=== PATIENT | female | born 1940 | race Asian ===

== ENCOUNTER 2019-08-04 00:23 | Emergency (ER) | payer SELFPAY ==
[~2019-08-04] VITALS: Ht 149.9 cm; Wt 65.8 kg
[2019-08-04 00:23] VITALS: BP_SYST 190
--- NOTE | 2019-08-04 00:23 | NUR ---
Placed in room 05 . Placed on school lunch monitor, blood pressure machine and pulse oximeter. Seizure precautions in place. Seizure pads applied to [place]. Side rails up.
--- NOTE | 2019-08-04 00:25 | NUR ---
Patient brought by [employer] for witnessed tonic clonic seizure lasting 2 mins in bed from home. Patient speaks primarily Tagalog. Patient is accompanied by daughter. Patient has history of HTN, Hyperlipidemia and Seizures. Last seizure was February 2018. Patient not currently on seizure medication. Denies any pain. No other complaints/injuries per patient or as noted. Will continue to monitor.
--- NOTE | 2019-08-04 00:37 | NUR ---
# 18 gauge angiocath placed to lac. Use of asceptic technique. Opsite placed over site. Blood return noted. Blood for lab drawn from site. Flushed with 10 cc of normal saline. No evidence of infiltration noted. Patient tolerated well.
--- NOTE | 2019-08-04 00:45 | NUR ---
ER Dr. Mcintosh at bedside examining patient.
[2019-08-04] MEDS ORDERED: LOSA25TA3 PO (01:05)
[2019-08-04] MEDS ORDERED: AMLO5TAB4 PO (01:06)
[2019-08-04] MEDS ORDERED: Atorvastatin PO (01:07)
[2019-08-04 01:10] LABS: HEMOGLOBIN 13.7 g/dL (12.0-16.0); MONOCYTES # (AUTO) 0.5 K/uL (0.0-1.0); WHITE BLOOD COUNT (AUTO) 6.4 K/uL (4.8-10.8)
[2019-08-04 01:16] LABS: ANION GAP 14 (5-15); CALCIUM 8.9 mg/dL (8.4-11.0); CHLORIDE 105 mmol/L (98-107); CREATININE 1.31 mg/dL (0.55-1.30); GLUCOSE 113 mg/dL (70-99); POTASSIUM 3.3 mmol/L (3.5-5.1); SODIUM SERUM 143 mmol/L (136-145); UREA NITROGEN, BLOOD 22 mg/dL (8-21)
[2019-08-04 01:19] LABS: BASOPHILS % (AUTO) 0.4 % (0.0-2.0); EOSINOPHILS # (AUTO) 0.1 K/uL (0.0-0.4); EOSINOPHILS % (AUTO) 2.1 % (0.0-4.0); HEMATOCRIT 41.6 % (36-48); LYMPHOCYTES # (AUTO) 2.8 K/uL (1.0-5.5); LYMPHOCYTES % (AUTO) 43.5 % (20.5-51.5); MEAN CORPUSCULAR HEMOGLOBIN 32 pg (27-31); MEAN CORPUSCULAR HGB CONC 33 % (32-36); MEAN CORPUSCULAR VOLUME 98 fL (79.0-98.0); MONOCYTES % (AUTO) 8.3 % (1.7-9.3); NEUTROPHILS # (AUTO) 2.9 K/uL (1.8-7.7); NEUTROPHILS % (AUTO) 45.7 % (40.0-70.0); PLATELET COUNT (AUTO) 137 K/uL (130-430); RED BLOOD CELL COUNT(AUTO) 4.27 MIL/uL (4.2-6.2); RED CELL DISTRIBUTION WIDTH 13.4 % (9.0-15.0)
[2019-08-04 01:21] LABS: ALANINE AMINOTRANSFERASE 36 U/L (12-78); ALBUMIN 4.1 g/dL (3.4-4.8); ASPARTATE AMINOTRANSFERASE 27 U/L (10-37); TOTAL BILIRUBIN 0.6 mg/dL (0.0-1.0)
--- NOTE | 2019-08-04 01:44 | NUR ---
Patient A&Ox4, speaking in clear sentences, and resting at this time. VSS. Will continue to monitor pt.
[2019-08-04] MEDS ORDERED: LIP40 PO (01:50)
[2019-08-04] MEDS ORDERED: LOSA50TA3 PO (01:50)
--- NOTE | 2019-08-04 02:20 | NUR ---
Patient is resting at this time in bed. VSS. No signs of distress. Will continue to monitor.
--- NOTE | 2019-08-04 02:58 | NUR ---
Report given to LINDSAY Cordova for continuation of care.
--- NOTE | 2019-08-04 03:31 | NUR ---
Swabbed for Covid-19 and sent to lab.
--- NOTE | 2019-08-04 04:45 | NUR ---
Patient transported to radiology via [place], accompanied by Senior Research [employer].
--- NOTE | 2019-08-04 04:55 | NUR ---
Patient came back from CT scan.
[2019-08-04 05:55] VITALS: BP_SYST 122
--- NOTE | 2019-08-04 05:55 | NUR ---
Patient given written and verbal discharge instructions and verbalizes understanding. ER MD discussed with patient the results and treatment provided. Patient in stable condition. ID arm band removed. IV catheter removed intact and dressing applied, no active bleeding. NO Rx given. Patient educated on pain management and to follow up with PMD. Pain Scale 0/10. Opportunity for questions provided and answered.
== END 2019-08-04 05:55 | disposition home or self-care (01) ==
LOC: SED 00:23
DX: G40.909 Epilepsy, unspecified, not intractable, without status epilepticus (principal); I10 Essential (primary) hypertension; E78.5 Hyperlipidemia, unspecified; Z79.899 Other long term (current) drug therapy; Z88.0 Allergy status to penicillin; Z91.013 Allergy to seafood; Z91.018 Allergy to other foods
CPT/HCPCS: 36415; 70450-TC; 80053; 83735-TC; 85025; 93005; 99285